=== PATIENT | female | born 1965 | race African-American/Black ===

== ENCOUNTER 2022-11-23 14:46 | Outpatient (REF) | payer MEDICAID, SELFPAY ==
[2022-11-23 15:51] LABS: Alanine Aminotransferase 9 U/L (0-31); Albumin Level 4.3 g/dL (3.5-5.0); Alkaline Phosphatase 83 U/L (39-117); Anion Gap 12 (12-20); Aspartate Amino Transferase 16 U/L (5-31); Bilirubin Direct < 0.2 mg/dL (0.0-0.5); Bilirubin Total 0.2 mg/dL (0.0-1.0); Blood Urea Nitrogen 10 mg/dL (9-16); Carbon Dioxide 25 mmol/L (22-29); Chloride 106 mmol/L (96-108); Estimated Glomerular Filt Rate > 60; Glucose Random 83 mg/dL (60-115); Potassium 3.8 mmol/L (3.3-5.1); Sodium 139 mmol/L (135-145); Total Protein 8.1 g/dL (6.5-8.0)
[2022-11-23 16:27] LABS: Erythrocyte Sedimentation Rate 33 MM/HR (0-20)
[2022-11-24 05:07] LABS: Syphilis Screen Nonreactive (Nonreactive)
[2022-11-25 05:24] LABS: Lyme Abs Screen <0.90 index
[2022-11-27 09:03] LABS: Anti Nuclear Antibody Screen NEGATIVE (NEGATIVE)
== END 2022-11-23 14:47 | disposition home or self-care (01) ==
LOC: HO.LAB 14:46
PROVIDERS: Visit Provider Psychiatry & Neurology Neurology
DX: G20 Parkinson's disease (principal)
CPT/HCPCS: 36415; 80048; 80076; 85652; 86038; 86617; 86618; 86780